=== PATIENT | male | born 1940 | race Caucasian/White ===

== ENCOUNTER 2018-03-14 06:57 | Inpatient (IN) | payer OTHER, MEDICARE ==
[~2018-03-14] VITALS: Ht 167.6 cm; Wt 82.4 kg
[2018-03-14] MEDS ORDERED: ACETAMINOPHEN 1000 MG/100 ML 100 ML IV ONE (07:15)
[2018-03-14] MEDS ORDERED: GENTAMICIN SULFATE 80 MG/2 ML VIAL ONE ×2 (07:34→13:46)
[2018-03-14] MEDS ORDERED: VANCOMYCIN 1 GM/200 ML INJ 200 ML IV ONE (07:57)
[2018-03-14] MEDS ORDERED: FERR325T18 PO (07:58)
[2018-03-14] MEDS ORDERED: TAMS0.4C4 PO (07:58)
[2018-03-14] MEDS ORDERED: APPL300T2 PO (07:58)
[2018-03-14] MEDS ORDERED: FINA5TAB2 PO (07:58)
[2018-03-14] MEDS ORDERED: LEVO75TA3 PO (07:58)
[2018-03-14] MEDS ORDERED: MULTTAB67 PO (07:58)
[2018-03-14] MEDS ORDERED: TRAM50TA PO (07:58)
[2018-03-14] MEDS ORDERED: ASPI81CH6 CHEW (07:58)
[2018-03-14] MEDS ORDERED: CALC1TAB12 PO (07:58)
[2018-03-14] MEDS ORDERED: CINN500C2 PO (07:58)
[2018-03-14] MEDS ORDERED: SIMV40TA PO (07:58)
[2018-03-14] MEDS ORDERED: BENA20TA PO (07:58)
[2018-03-14] MEDS ORDERED: INSULIN HUMAN REGULAR 1,000 UNITS/10 ML VIAL SQ PRN (08:15)
[2018-03-14] MEDS ORDERED: LACTATED RINGER'S 1000 ML IV PRN (08:15)
[2018-03-14] MEDS ORDERED: CHLORHEXIDINE GLUCONATE 2 % 1 PACK (2 CLOTHS) TOPICAL PRN (08:15)
[2018-03-14] MEDS ORDERED: CHLORHEXIDINE GLUCONATE 4% SOLN 120 ML BTL TOPICAL SCH (08:15)
[2018-03-14] MEDS ORDERED: POVIDONE IODINE 5% (ANTISEPSIS KIT) 4 APPLICATIONS EACH NARE PRN (08:15)
[2018-03-14] MEDS ORDERED: VANCOMYCIN 1 GM/200 ML PREMIX IV SCH (08:15)
[2018-03-14] MEDS ORDERED: SODIUM CHLORID 0.9% 500 ML IV PRN (08:15)
[2018-03-14] MEDS ORDERED: ceFAZolin 2 GM PREMIX 50 ML IV SCH (08:15)
[2018-03-14] MEDS ORDERED: METOPROLOL TARTRATE 25 MG TAB PO PRN (08:15)
[2018-03-14] MEDS ORDERED: HEPARIN SODIUM - SQ 10,000 UNITS/ML VIAL ONE (09:21)
[2018-03-14] MEDS ORDERED: BUPIVACAINE/EPINEPHRINE 0.5% PF 10 ML VIAL ONE (10:18)
[2018-03-14] MEDS ORDERED: EPINEPHRINE OTHER ONE (11:15)
[2018-03-14] MEDS ORDERED: SODIUM CHLORID 0.9% OTHER ONE (11:15)
[2018-03-14] MEDS ORDERED: SUGAMMADEX SODIUM 200 MG/2 ML VIAL IV PUSH ONE (11:21)
[2018-03-14] MEDS ORDERED: DEXAMETHASONE SOD PHOS 4 MG/ML VIAL IV ONE (12:00)
[2018-03-14] MEDS ORDERED: ONDANSETRON HCL 4 MG/2 ML VIAL IV PUSH ONE (12:00)
[2018-03-14] MEDS ORDERED: PHENYLEPHRINE HCL 10 MG/ML VIAL IV ONE (12:00)
[2018-03-14] MEDS ORDERED: SODIUM CHLOR 0.9% 250 ML INJ 250 ML IV ONE (12:00)
[2018-03-14] MEDS ORDERED: PHENYLEPH/NS 1000 MCG/10 ML SYR IV ONE (12:00)
[2018-03-14] MEDS ORDERED: PROPOFOL 200 MG/20 ML AMP IV ONE (12:00)
[2018-03-14] MEDS ORDERED: LIDOCAINE HCL 1% PF 5 ML SYRINGE OTHER ONE (12:00)
[2018-03-14] MEDS ORDERED: SODIUM CHLOR 0.9% 1000 ML INJ 1,000 ML IV ONE (12:00)
[2018-03-14] MEDS ORDERED: LACTATED RINGER'S 1000 ML INJ 2,000 ML IV ONE (12:00)
[2018-03-14] MEDS ORDERED: ROCURONIUM INJ 50 MG/5 ML SYRINGE IV PUSH ONE (12:00)
[2018-03-14] MEDS ORDERED: ePHEDrine/NS 25 MG/5 ML SYRINGE IV ONE (12:00)
[2018-03-14] MEDS ORDERED: ceFAZolin INJ 1,000 MG VIAL IV ONE ×2 (12:00→13:26)
[2018-03-14] MEDS ORDERED: HYDROmorphone HCL PF 2 MG/ML VIAL ONE ×2 (14:47→14:51)
[2018-03-14] MEDS ORDERED: VANCOMYCIN HCL 1000 MG VIAL ONE (16:00)
[2018-03-14] MEDS ORDERED: ONDANSETRON HCL 4 MG/2 ML VIAL ONE (16:18)
[2018-03-14] MEDS ORDERED: ALUMINUM/MAGNESIUM/SIMETH 30 ML CUP PO PRN (17:00)
[2018-03-14] MEDS ORDERED: NALOXONE HCL 0.4 MG/ML AMP IV PUSH PRN (17:00)
[2018-03-14] MEDS ORDERED: SOD PHOSPHATE/SOD BIPHOSPHATE (ADULT) ENEMA 133ML PR PRN (17:00)
[2018-03-14] MEDS ORDERED: BISACODYL 10 MG SUPP RECTAL PRN (17:00)
[2018-03-14] MEDS ORDERED: ONDANSETRON ODT 4 MG TAB PO PRN (17:00)
[2018-03-14] MEDS ORDERED: MORPHINE SULFATE 8 MG/ML INJ IV PUSH PRN (17:00)
[2018-03-14] MEDS ORDERED: Post-op Orders (for Pharmacy) XX ONE (17:00)
--- NOTE | 2018-03-14 17:05 | RADRPT ---
EXAM DATE: 03/14/2018 4:45 PM EDT AGE/SEX: 78 years / Male INDICATIONS: Lumbar spine fusion. CLINICAL DATA: This is the patient's initial encounter. Patient reports that signs and symptoms have been present for 1 day and indicates a pain score of Nonresponsive. MEDICAL/SURGICAL HISTORY: Non-responsive. Non-responsive. COMPARISON: No prior [facility] exams available for comparison. FINDINGS: 3 spot fluoroscopic images obtained in the operating room during a procedure document bilateral poste rior pedicular screws with vertical stabilization hardware extending from L3 through S1. Material has also been placed at the disc spaces at L4-L5 and L5-S1. There is decreased disc height at the L5-S1 level. CONCLUSION: Images document hardware posteriorly at L3-S1. Electronically signed by: Iam Sanchez MD 03/14/2018 5:04 PM EDT
--- NOTE | 2018-03-14 17:14 | PD.OP ---
cc: Jonah Yeboah MD Operative Report Date of Surgery: March 14, 2018 Preoperative Diagnosis: Lumbar spinal stenosis L2-3, L3-4, L4-5, L5-S1. Spondylolisthesis L5-S1, grade 3. Bilateral lumbosacral radiculopathy Postoperative Diagnosis: Same Procedure: Bilateral laminectomy L2-3, L3-4, L4-5, L5-S1. Reduction of spondylolisthesis, L5-S1. Posterior lateral interbody fusion L4-5 and L5-S1. Placement of interbody cage from the left L4-5 and L5-S1. Posterior spinal fusion, lateral transverse process technique L3-4, L4-5, L5-S1. Posterior spinal segmental instrumentation L3-S1. Major bone grafting of the lumbar spine Anesthesia: General Surgeon: Jonah Yeboah Emergency Management Consultant(s): COLTEN Geller Operation and Findings: EBL: 550 ml NOTE: Pura Oliver PA-C was present during the beginning of the procedure including the midline exposure, lateral recess exposure and a partial laminectomy including the bilateral laminectomy at L2-3. Sophia Geller PA-C was present during the rest of the surgical procedure. In my medical opinion her skill and care was necessary for proper management of this patient INDICATIONS: This patient is a 78-year-old male who is developing weakness into both of his legs. Investigative studies show a highly unstable grade 3 spondylolisthesis at L5-S1. The patient has a severe spinal stenosis at L3-4 L4 -5 and L5-S1. There is a moderate spinal stenosis at L2-3. Despite conservative care, the patient continued to be painful and symptomatic and now presents for surgical treatment. INSTRUMENTATION: Spine wave screws and interbody cages PROCEDURE: The patient brought to the operating room and anesthetized the supine position. The patient positioned prone on the Salvador frame on the Naman table. All pressure points are protected. The back was scrubbed with alcohol followed by Hibiclens followed by ChloraPrep and draped sterilely and antibiotics were given within a routine time window. A timeout was done. Lateral radiographic images used to identify the proper level for the procedure. Compared care for the preoperative studies. Skin markings were made anticipating surgical treatment. A midline exposure was accomplished. AP and lateral radiographic images were used to confirm proper level of dissection. Dissection continued out to the tips of the transverse processes from L3 to the sacrum. Deep retractors were positioned. A bilateral laminectomy was accomplished at L2 -3 L3-4 and L4-5. A Conrad procedure was performed at L5 with complete removal of the facet and the lamina. There was a very unstable pars fracture. Bilaterally we completely decompressed the L5 nerve root. A high-grade stenosis was found at all levels except for L2-3 which was a moderate to severe stenosis. The decompression was very satisfactory. We placed screws on the right side at L5 and S1 and use this to help with the reduction of the spondylolisthesis. At L4-5 a subtotal left-sided facet resection was accomplished allowing exposure of the disc space. An annulotomy was accomplished with resection of the entire disc. On the back table demineralized bone matrix, autologous bone graft and stem cells were mixed together to be used for bone grafting. After removal of the disc at L4-5, bone graft was impacted into the disc space followed by placement of a Staxx cage which was elevated. The attention was directed to the L5-S1. From the left side a subtotal facet resection allowed better visualization of the annulus. The spondylolisthesis had been partially reduced. A total discectomy was accomplished. Bone graft was placed into the disc space followed by placement of a Staxx cage which was elevated. Additional bone graft was placed behind the cage. Additional screws were placed to the left side L5 and S1 as well as bilateral screws at L3 and L4. These were checked under biplanar fluoroscopy and found to be in satisfactory alignment and position. Each screw was charged with electric current and there were no abnormal potentials registered in either lower extremity. We then did a further reduction of the spondylolisthesis and attaching this from L3-S1. Screws at S1 were 7.5 mm the other screws were 6.5 mm. The reduction was very satisfactory bringing this back to a minimal to grade 1 spondylolisthesis. Again we checked the L5 nerve root bilaterally there is no evidence of any nerve root compression in the foramen. Bone graft was placed into the lateral gutters from L3 to the sacrum. The wound had been irrigated multiple times. The deep fascia was approximated with interrupted #1 Vicryl suture subcutaneous tissue 2-0 Vicryl suture and skin with running intradermal 3-0 Vicryl followed by benzoin and Steri-Strips. A sterile dressing was plied. The patient was awakened and taken to the recovery room in satisfactory condition The wound was irrigated copiously. Bone grafting was placed along the lateral gutter in the region of the transverse process across this level. This was closed in layers with #1 Vicryl, 2-0 Vicryl and running intradermal 3-0 Vicryl followed by Steri-Strips and benzoin. On the contralateral side a separate exposure was made. The outer edge of the facet joints were identified. A bur was used to gain entrance into the pedicle followed by placement of a probe and proper length screws. Each screw was charged with electric current and no abnormal potentials registered in either lower extremity. The wound was irrigated copiously. Bone graft placed along the transverse process across this level. It was closed in layers using #1 Vicryl, 2-0 Vicryl and running intradermal 3-0 Vicryl followed by Steri-Strips and benzoin. Intraoperative radiographs were obtained. No complication was appreciated. The patient had a sterile dressing applied. The patient was awakened and taken to recovery room in satisfactory condition. FINDINGS: There was an unstable grade 3 spondylolisthesis at L5-S1. The final construct was very satisfactory. There was no complication that was appreciated. Jonah Yeboah MD March 14, 2018 17:14
[2018-03-14] MEDS ORDERED: HYDR-3580 PO (17:19)
--- NOTE | 2018-03-14 17:24 | HHI.FF ---
Face to Face Verification Diagnosis: (1) Spinal stenosis of lumbar region (2) Spondylolisthesis Physical Therapy Gait training, Safety evaluation S/P Spinal Fusion: Gait training with walker, Weight bearing as tolerated, No twisting of torso, No bending Additional Instructions 3 times per week for 2 weeks Nursing RN: 3 days/week x 2 weeks Nursing: Dressing changes Dressing Changes: Daily dressing change I have seen patient Iam Paige on 03/14/18. My clinical findings support the need for the requested home health care services because: Limited ability to care for self High risk of falls I certify that my clinical findings support that this patient is homebound because: Unsteady gait/balance Jonah Yeboah MD March 14, 2018 17:24
[2018-03-14] MEDS ORDERED: MIDAZOLAM HCL 2 MG/2 ML VIAL ONE (17:36)
[2018-03-14] MEDS ORDERED: MORPHINE SULFATE 4 MG/ML INJ ONE (17:37)
[2018-03-14 18:30] VITALS: BP 91/61; PULSE 112; RESP 12; O2SAT 98
[2018-03-14 20:00] VITALS: BP 99/65; PULSE 101; RESP 18; TEMP 98; O2SAT 98
[2018-03-14 21:00] VITALS: BP 143/75
[2018-03-14] MEDS ORDERED: NON-FORMULARY DRUG (Simvastatin 40 MG) PO SCH (21:00)
[2018-03-14] MEDS: PRAVASTATIN SOD 80 MG TAB PO SCH (21:00)
[2018-03-14] MEDS ORDERED: ZOLPIDEM TARTRATE 5 MG TAB PO PRN (21:00)
[2018-03-14] MEDS: TAMSULOSIN HCL 0.4 MG CAP PO SCH ×2 (21:00→22:04)
[2018-03-14] MEDS: PCA - TOTAL MG MORPHINE DELIVERED PER SHIFT SCH (22:00)
[2018-03-14] MEDS: LACTATED RINGER'S 1000 ML INJ 1,000 ML IV SCH (22:06)
[2018-03-15] VITALS (7 sets, daily range): BP systolic 92–123; BP diastolic 53–62; PULSE 82–97; RESP 16–18; TEMP 97.3–98.6; O2SAT 95–100
[2018-03-15] MEDS: ACETAMINOPHEN/HYDROcodone 325 MG/7.5 MG TAB PO PRN ×3 (03:40→15:23)
[2018-03-15] MEDS: MORPHINE SULFATE 30 MG/30 ML PCA IV SCH ×2 (03:59→20:52)
[2018-03-15] MEDS: LACTATED RINGER'S 1000 ML INJ 1,000 ML IV SCH ×2 (05:28→17:58)
[2018-03-15] MEDS: PCA - TOTAL MG MORPHINE DELIVERED PER SHIFT SCH ×3 (06:00→23:54)
[2018-03-15] MEDS: LEVOTHYROXINE SODIUM 75 MCG TAB PO SCH (06:05)
[2018-03-15 08:13] LABS: HEMATOCRIT 24.6 % (39.0-51.0); HEMOGLOBIN 8.2 GM/DL (13.0-17.0)
[2018-03-15] MEDS: LISINOPRIL 20 MG TAB PO SCH (08:32)
[2018-03-15] MEDS: FINASTERIDE 5 MG TAB PO SCH (08:32)
--- NOTE | 2018-03-15 11:56 | PD.CONS ---
HPI Service [facility] Consult Requested By Dr. Jonah Yeboah Reason for Consult Opinion and recommendations on treatment of patient's hypertension and hyperlipidemia Primary Care Physician Arnel Jansen M.D. Diagnoses: History of Present Illness 78-year-old white male with a history of lumbar stenosis who has had chronic back pain problems and failed conservative treatment electively underwent laminectomy with Dr. Yeboah yesterday. Currently she is he is doing well postoperatively with no complaints. His pain is controlled well. When he is well he occasionally does struggle with constipation. He states that his blood pressures adequately controlled well at home on his antihypertensives. Review of Systems Constitutional: DENIES: Fatigue, Fever, Chills, Change in appetite Endocrine: DENIES: Heat/cold intolerance Eyes: DENIES: Blurred vision, Eye pain, Vision loss Ears, nose, mouth, throat: DENIES: Hearing loss, Nasal discharge, Throat pain, Ear Pain, Sinus Pain Respiratory: DENIES: Cough, Shortness of breath Cardiovascular: DENIES: Chest pain, Palpitations, Dyspnea on Exertion, Lower Extremity Edema Gastrointestinal: DENIES: Abdominal pain, Black stools, Bloody stools, Constipation, Diarrhea, Nausea, Vomiting Musculoskeletal: COMPLAINS OF: Joint pain, Back pain (Chronic back pain), DENIES: Muscle aches, Stiffness Integumentary: DENIES: Rash Hematologic/lymphatic: DENIES: Bruising, Lymphadenopathy Immunologic/allergic: DENIES: Eczema Neurologic: DENIES: Headache, Localized weakness, Paresthesias Psychiatric: DENIES: Anxiety, Depression, Suicidal Ideation Past Family Social History Allergies: Coded Allergies: No Known Allergies (Unverified , 03/14/18) Past Medical History Hypothyroidism Hyperlipidemia Hypertension BPH Chronic back pain Osteoarthritis Lumbar stenosis Previous trauma and liver laceration and rupture Past Surgical History Liver laceration repair Bilateral carotid endarterectomy Left femur fracture repair Left foot surgery Right knee repair Reported Medications Aspirin 81 mg p.o. daily Benazepril 20 mg p.o. daily Calcium carbonate 1 p.o. daily Ferrous sulfate 325 mg p.o. daily Finasteride 5 mg p.o. daily Sarver 5 1 p.o. every 4 as needed for pain Levothyroxine 75 MCG p.o. daily Multivitamins 1 p.o. daily Simvastatin 40 mg p.o. nightly Flomax 0. 8 mg p.o. nightly Tramadol 50 mg p.o. twice daily as needed for pain Family History Noncontributory Social History Does not smoke cigarettes or drink alcohol Physical Exam Vital Signs Vital Signs Date Time Temp Pulse Resp B/P (MAP) Pulse Ox O2 Delivery O2 Flow Rate FiO2 03/15/18 08:00 97.7 88 16 123/60 (81) 95 03/15/18 04:00 98.1 93 18 106/53 (70) 97 03/15/18 00:00 97.8 97 18 114/62 (79) 98 03/14/18 21:00 143/75 (97) 03/14/18 20:00 98.0 101 18 99/65 (76) 98 03/14/18 19:01 Nasal Cannula 2.00 03/14/18 18:30 112 12 91/61 (71) 98 03/14/18 18:15 111 18 96/53 (67) 99 Nasal Cannula 3 03/14/18 18:00 110 18 125/62 (83) 99 Nasal Cannula 3 03/14/18 17:45 119 18 113/67 (82) 99 Nasal Cannula 3 03/14/18 17:30 118 18 109/72 (84) 99 Nasal Cannula 3 03/14/18 17:20 97.4 116 18 106/74 (85) 100 Nasal Cannula 3 Physical Exam GENERAL: This is a well-nourished, well-developed patient, in no apparent distress. SKIN: No rashes, ecchymoses or lesions. Cool and dry. HEAD: Atraumatic. Normocephalic. No temporal or scalp tenderness. EYES: Pupils equal round and reactive. Extraocular motions intact. No scleral icterus. No injection or drainage. ENT: Nose without bleeding, purulent drainage or septal hematoma. NECK: Trachea midline. Supple, nontender, CARDIOVASCULAR: Regular rate and rhythm with 2 out of 6 systolic ejection murmur RESPIRATORY: Relatively clear to auscultation. Breath sounds equal bilaterally. No wheezes, rales, or rhonchi. GASTROINTESTINAL: Abdomen soft, non-tender, nondistended. Small reducible ventral hernia normoactive bowel sounds MUSCULOSKELETAL: Extremities without clubbing, cyanosis, or edema. NEUROLOGICAL: Awake and alert to person place time. Cranial nerves II through XII intact. Motor and sensory grossly within normal limits. Normal speech. Laboratory Laboratory Tests Test 03/14/18 15:20 03/15/18 06:45 Blood Gas Puncture Site DRAWN IN OR Blood Gas Patient Temperature 98.6 Blood Gas HCO3 21 Blood Gas Base Excess -3.0 Blood Gas Oxygen Saturation 96 Arterial Blood pH 7.40 Arterial Blood Partial Pressure CO2 35 Arterial Blood Partial Pressure O2 254 Arterial Blood Oxygen Content 14.7 Arterial Blood Carboxyhemoglobin 0.0 Arterial Blood Methemoglobin 1.1 Blood Gas Hemoglobin 10.4 Oxygen Delivery Device VENTILATOR Blood Gas Ventilator Setting OR SETTINGS Blood Gas Inspired Oxygen 50 Hemoglobin 8.2 Hematocrit 24.6 Result Diagram: 03/15/18 0645 Imaging Last Impressions Lumbar Spine X-Ray 03/14/18 0000 Signed Impressions: CONCLUSION: Images document hardware posteriorly at L3-S1. Assessment and Plan Assessment and Plan 1. Lumbar stenosis status post operative day #1 Bilateral laminectomy L2-3, L3-4, L4-5, L5-S1. Reduction of spondylolisthesis, L5-S1. Posterior lateral interbody fusion L4-5 and L5-S1. Placement of interbody cage from the left L4-5 and L5-S1. Posterior spinal fusion, lateral transverse process technique L3-4, L4-5, L5- S1. Posterior spinal segmental instrumentation L3-S1 with Major bone grafting of the lumbar spine Continue postoperative care, pain control, physical therapy per orthopedic surgery. 2. Hypothyroidism - continue with levothyroxine 3. Hypertension, chronic essential Continue home GREER inhibitor, IV Vasotec as needed for uncontrolled blood pressure. Further recommendations based on blood pressure trends 4. BPH -continue with Flomax and finasteride 5. DVT prophylaxis - bilateral SCDs Thank you for this consultation. Jaz Briones MD March 15, 2018 11:55
[2018-03-15] MEDS ORDERED: ENALAPRILAT 1.25 MG/ML VIAL IV PUSH PRN (12:00)
--- NOTE | 2018-03-15 13:09 | HHI.DCPOC ---
Discharge Care Plan Diagnosis: (1) Spinal stenosis of lumbar region (2) Spondylolisthesis Your Health Problems Are: Difficulty with ADL Incision/Drains Swelling Goals to Promote Your Health * To prevent worsening of your condition and complications * To maintain your health at the optimal level Directions to Meet Your Goals Take your medications as prescribed Follow your dietary instruction Follow activity as directed Keep your appointments as scheduled Take your immunizations and boosters as scheduled If your symptoms worsen call your PCP, if no PCP go to Urgent Care Center or Emergency Room Smoking is Dangerous to Your Health. Avoid second hand smoke Call the 24-hour hour crisis hotline for domestic abuse at Pura Oliver March 15, 2018 13:09
--- NOTE | 2018-03-15 13:10 | HHI.DS ---
Discharge Summary Admission Date March 14, 2018 at 06:57 Discharge Date: March 16, 2018 Admitting Diagnosis see below Diagnosis: (1) Spinal stenosis of lumbar region Diagnosis: Principal ICD Codes: M48.061 - Spinal stenosis, lumbar region without neurogenic claudication (2) Spondylolisthesis Diagnosis: Principal ICD Codes: M43.10 - Spondylolisthesis, site unspecified Procedures Laminectomy L23, L34, L45, L5S1, Posterior lumbar fusion L2-S1. Brief History This is a 78 year old male patient CBC/BMP: 03/15/18 0645 Significant Findings Laboratory Tests Test 03/14/18 15:20 03/15/18 06:45 Blood Gas HCO3 21 mmol/L (22-26) Blood Gas Base Excess -3.0 mmol/L (-2-2) Arterial Blood Partial Pressure CO2 35 mmHg (38-42) Arterial Blood Partial Pressure O2 254 mmHg (61-120) Blood Gas Hemoglobin 10.4 G/DL (12.0-16.0) Hemoglobin 8.2 GM/DL (13.0-17.0) Hematocrit 24.6 % (39.0-51.0) Pt Condition on Discharge: Stable Discharge Disposition: Disch w/ Home Health Serv Discharge Instructions Diet Instructions: As Tolerated, No Restrictions, Soft Diet Additional Diet Instructions: Soft diet for 48 hours Activities You Can Perform: Weight Bearing as Sumit, See Additionl Instruction Activities to Avoid: Strenuous Activity Additional Activity Instruc.: Brace when out of bed for 3 months New Medications: Hydrocodone/Acetaminophen (Hydrocodone-Acetamin 7.5-325) 7.5 Mg-325 Mg Tablet 1 TAB PO Q4H PRN for Pain, #42 TAB Continued Medications: Aspirin (Aspirin Low Dose) 81 Mg Chew 81 MG CHEW DAILY, TAB 0 Refills Benazepril (Benazepril) 20 Mg Tab 20 MG PO DAILY for Blood Pressure Management, #30 TAB 0 Refills Calcium Carbonate-Cholecalciferol (Calcium 500 +D) 500-400 Mg-Unit Tab 1 TAB PO DAILY for Calcium Supplement, TAB 0 Refills Cider Vinegar (Apple Cider Vinegar) 300 Mg Tablet 450 MG PO BID Cinnamon (Eql Cinnamon) 500 Mg Cap 2000 MG PO DAILY, #1 BOTTLE Ferrous Sulfate (Ferrous Sulfate) 325 Mg (65 Mg Iron) Tablet 325 MG PO DAILY for Nutritional Supplement, #30 TAB 0 Refills Finasteride (Finasteride) 5 Mg Tab 5 MG PO DAILY for Manage Prostate Problems, #30 TAB 0 Refills Do not crush. Levothyroxine (Levothyroxine) 75 Mcg Tab 75 MCG PO DAILY for Thyroid, #30 TAB 0 Refills Multiple Vitamin (Multiple Vitamin) 1 Tab 1 TAB PO DAILY for Nutritional Supplement, TAB 0 Refills Simvastatin (Simvastatin) 40 Mg Tab 40 MG PO HS for Cholesterol Management, #30 TAB 0 Refills Tamsulosin (Tamsulosin) 0.4 Mg Cap 0.8 MG PO HS for Manage Prostate Problems, #60 CAP 0 Refills Tramadol (Tramadol) 50 Mg Tab 50 MG PO BID PRN for PAIN, TAB 0 Refills Pura Oliver March 15, 2018 13:10
[2018-03-15] MEDS ORDERED: WALKER WHEELS/F1 MIS (13:11)
[2018-03-15] MEDS ORDERED: COMMODE 3-IN-11 MIS (13:11)
[2018-03-15] MEDS: DOCUSATE SODIUM 100 MG CAP PO SCH (20:50)
[2018-03-15] MEDS: PRAVASTATIN SOD 80 MG TAB PO SCH (20:50)
[2018-03-15] MEDS: TAMSULOSIN HCL 0.4 MG CAP PO SCH (20:50)
[2018-03-15] MEDS ORDERED: SODIUM CHLOR 0.9% 1000 ML INJ 1,000 ML IV SCH (21:30)
--- NOTE | 2018-03-15 21:43 | RADRPT ---
EXAM DATE: 03/15/2018 9:38 PM EDT AGE/SEX: 78 years / Male INDICATIONS: Stroke alert, slurred speech, left sided paralysis CLINICAL DATA: This is the patient's initial encounter. Patient reports that signs and symptoms have been present for 1 day and indicates a pain score of Nonresponsive. MEDICAL/SURGICAL HISTORY: Non-responsive. Non-responsive. RADIATION DOSE: 56.35 CTDI (mGy) COMPARISON: No prior [facility] exams available for comparison. Report was called by [ Dr. Noble to 's [place] at 9:40 PM] TECHNIQUE: CT of the head without contrast. Using automated exposure control and adjustment of the mA and/or kV according to patient size, radiation dose was kept as low as reasonably achievable to ob tain optimal diagnostic quality images. FINDINGS: Cerebrum: The ventricles are normal for age. There is bilateral cortical atrophy. There is a Tiny ol d lacunar infarct in the right basal ganglia. No evidence of midline shift, mass lesion, hemorrhage or acute infarction. No extraaxial fluid collections are seen. Posterior Fossa: The cerebellum and brainstem are intact. The 4th ventricle is midline. The cerebe llopontine angle is unremarkable. Extracranial: The visualized portion of the orbits is intact. Skull: The calvaria is intact. No evidence of skull fracture. CONCLUSION: 1. No acute intracranial hemorrhage. 2. 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 3. Bilateral cortical atrophy. Electronically signed by: Urbano Noble MD 03/15/2018 9:41 PM EDT
[2018-03-15 21:54] LABS: AUTOMATED NEUTROPHIL # 12.8 TH/MM3 (1.8-7.7); BASOPHIL % 0.2 % (0.0-2.0); EOSINOPHIL % 0.1 % (0.0-4.0); HEMATOCRIT 22.2 % (39.0-51.0); HEMOGLOBIN 7.3 GM/DL (13.0-17.0); LYMPH % 5.9 % (9.0-44.0); LYMPHOCYTE # 0.9 TH/MM3 (1.0-4.8); MEAN CELL VOLUME 96.1 FL (80.0-100.0); MEAN CORPUSCULAR HEMOGLOBIN 31.7 PG (27.0-34.0); MONO % 6.6 % (0.0-8.0); NEUT % 87.2 % (16.0-70.0); PLATELET COUNT 183 TH/MM3 (150-450); RED BLOOD COUNT 2.31 MIL/MM3 (4.50-5.90); RED CELL DISTRIBUTION WIDTH 13.6 % (11.6-17.2); WHITE BLOOD COUNT 14.7 TH/MM3 (4.0-11.0)
--- NOTE | 2018-03-15 22:12 | PD.ORT.PN ---
Subjective Subjective Remarks Seen at 12:30pm today. Pain in legs much improved. He can 'already tell a difference'. No new leg pain. Back is very sore with moderate pain. Appetite is good. No new CP or SOB. Objective Vitals Vital Signs Date Time Temp Pulse Resp B/P (MAP) Pulse Ox O2 Delivery O2 Flow Rate FiO2 03/15/18 21:17 100 1.50 03/15/18 20:52 18 03/15/18 20:00 98.6 85 17 100/56 (71) 99 03/15/18 16:00 98.1 88 16 92/54 (67) 97 03/15/18 14:00 20 03/15/18 12:00 97.3 82 16 104/53 (70) 95 03/15/18 08:00 97.7 88 16 123/60 (81) 95 03/15/18 04:00 98.1 93 18 106/53 (70) 97 03/15/18 00:00 97.8 97 18 114/62 (79) 98 I/O 03/14/18 03/14/18 03/14/18 03/15/18 03/15/18 03/15/18 07:00 15:00 23:00 07:00 15:00 23:00 Intake Total 2800 ml 1241 ml 1100 ml Output Total 1265 ml 200 ml 150 ml Balance 1535 ml 1041 ml 950 ml Intake Oral 1100 ml IV Total 1241 ml Other 2800 ml Output Urine Total 530 ml 0 ml Drainage Total 185 ml 200 ml 150 ml Estimated Blood Loss 550 ml # Bowel Movements 0 Result Diagram: 03/15/180 Other Results Laboratory Tests Test 03/15/18 21:20 Imaging Last [address] 03/15/18 0000 Signed Impressions: CONCLUSION: 1. No acute intracranial hemorrhage. 2. 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 3. Bilateral cortical atrophy. Procedures Laminectomy L23, L34, L45, L5S1, Posterior lumbar fusion L2-S1. Objective Remarks Sitting up in bed at bedside NAD Eating lunch L/S Dressings intact, drain in place, no erythema, mild spasm +motor at/ehl/GS bilaterally, +sens, +nvi Neg homans bilaterally Assessment & Plan Ortho Post Op Day #: 1 Problem List: (1) Spinal stenosis of lumbar region ICD Codes: M48.061 - Spinal stenosis, lumbar region without neurogenic claudication Qualifiers: Qualified Codes: M48.062 - Spinal stenosis, lumbar region with neurogenic claudication (2) Spondylolisthesis ICD Codes: M43.10 - Spondylolisthesis, site unspecified Qualifiers: Qualified Codes: M43.16 - Spondylolisthesis, lumbar region Assessment and Plan pod#1 s/p Lami/Fusion L2-S1 Pain moderately controlled. Legs improved. PO pain meds as needed. D/C lumbar drain today. Ok to redress drain site. Dressing changes only if saturated. PT - Out of bed with brace for 10-12 weeks. WBAT. Walker as needed. Mild postop anemia. R/C Hg/Hct tomorrow am. If drops below 7.5 consider transfusion. D/C planning, C tomorrow or tuesday. DME written. Pura Oliver March 15, 2018 22:11
[2018-03-15 22:25] LABS: TROPONIN I LESS THAN 0.02 NG/ML (0.02-0.05)
[2018-03-15 22:30] LABS: PROTHROMBIN TIME - PATIENT 9.8 SEC (9.8-11.6)
[2018-03-16] VITALS (13 sets, daily range): BP systolic 92–123; BP diastolic 44–60; PULSE 83–112; RESP 16–18; TEMP 98.3–99.9; O2SAT 94–98
[2018-03-16] MEDS ORDERED: SODIUM CHLOR 0.9% 250 ML INJ 250 ML IV ONE
[2018-03-16] MEDS ORDERED: FUROSEMIDE 20 MG/2 ML VIAL IV PUSH ONE
[2018-03-16] MEDS ORDERED: ACETAMINOPHEN 325 MG TAB PO ONE (04:15)
[2018-03-16] MEDS: LEVOTHYROXINE SODIUM 75 MCG TAB PO SCH (04:59)
[2018-03-16] MEDS: PCA - TOTAL MG MORPHINE DELIVERED PER SHIFT SCH ×3 (05:00→22:00)
[2018-03-16] MEDS: ACETAMINOPHEN/HYDROcodone 325 MG/7.5 MG TAB PO PRN ×4 (06:47→23:30)
[2018-03-16] MEDS: FINASTERIDE 5 MG TAB PO SCH (08:53)
[2018-03-16] MEDS: LISINOPRIL 20 MG TAB PO SCH (08:53)
[2018-03-16] MEDS: DOCUSATE SODIUM 100 MG CAP PO SCH ×2 (08:54→19:42)
[2018-03-16 09:31] LABS: AUTOMATED NEUTROPHIL # 11.3 TH/MM3 (1.8-7.7); BASOPHIL % 0.2 % (0.0-2.0); EOSINOPHIL % 0.1 % (0.0-4.0); HEMATOCRIT 24.5 % (39.0-51.0); HEMOGLOBIN 8.3 GM/DL (13.0-17.0); LYMPH % 5.4 % (9.0-44.0); LYMPHOCYTE # 0.7 TH/MM3 (1.0-4.8); MEAN CELL VOLUME 93.3 FL (80.0-100.0); MEAN CORPUSCULAR HEMOGLOBIN 31.8 PG (27.0-34.0); MEAN CORPUSCULAR HGB CONC 34.1 % (32.0-36.0); MONO % 7.7 % (0.0-8.0); NEUT % 86.6 % (16.0-70.0); PLATELET COUNT 165 TH/MM3 (150-450); RED BLOOD COUNT 2.62 MIL/MM3 (4.50-5.90); RED CELL DISTRIBUTION WIDTH 15.2 % (11.6-17.2); WHITE BLOOD COUNT 13.1 TH/MM3 (4.0-11.0)
[2018-03-16 09:35] LABS: ALBUMIN 2.6 GM/DL (3.4-5.0); AST (GOT) 28 U/L (15-37); BICARBONATE 20.1 MEQ/L (21.0-32.0); BLOOD UREA NITROGEN 26 MG/DL (7-18); CALCIUM 7.5 MG/DL (8.5-10.1); CHLORIDE 103 MEQ/L (98-107); CREATININE 1.48 MG/DL (0.60-1.30); GLOMERULAR FILTRATION RATE 46 ML/MIN (>89); GLUCOSE,RANDOM 185 MG/DL (74-106); SODIUM (NA) 134 MEQ/L (136-145)
[2018-03-16 09:36] LABS: ALT (GPT) 19 U/L (12-78)
[2018-03-16 09:38] LABS: ALKALINE PHOSPHATASE 89 U/L (45-117); TOTAL BILIRUBIN ADULT 0.5 MG/DL (0.2-1.0); TOTAL PROTEIN 5.3 GM/DL (6.4-8.2)
--- NOTE | 2018-03-16 11:14 | HHI.PR ---
Subjective Remarks Follow-up visit history of lumbar stenosis and chronic back pain with failed conservative treatment, status post laminectomy with Dr. Meza. Patient seen and examined today sitting in a chair with brace on. at the bedside. Reports he is doing well. 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 He has not been eating well. Patient reports constipation. Otherwise, denies SOB / dyspnea. Denies chest pain, palpitations, headaches, dizziness. Denies fevers , chills, n/v/d. Denies hematuria, dysuria. Objective Vitals Vital Signs Date Time Temp Pulse Resp B/P (MAP) Pulse Ox O2 Delivery O2 Flow Rate FiO2 03/16/18 08:00 98.6 91 18 101/53 (69) 97 03/16/18 06:42 98.9 101 16 104/59 (74) 96 03/16/18 05:39 99.9 110 16 94/52 96 03/16/18 05:00 16 03/16/18 04:00 99.0 105 16 111/53 (72) 97 03/16/18 04:00 99.7 112 18 109/59 (76) 98 03/16/18 03:38 99.0 105 16 111/53 97 03/16/18 03:09 99.3 106 16 92/44 97 03/16/18 02:51 99.3 103 16 92/44 (60) 94 03/16/18 00:01 98.9 107 18 100/55 (70) 96 03/15/18 23:54 16 03/15/18 21:45 Room Air 03/15/18 21:17 100 1.50 03/15/18 20:52 18 03/15/18 20:00 98.6 85 17 100/56 (71) 99 03/15/18 16:00 98.1 88 16 92/54 (67) 97 03/15/18 14:00 20 03/15/18 12:00 97.3 82 16 104/53 (70) 95 I/O 03/15/18 03/15/18 03/15/18 03/16/18 03/16/18 03/16/18 07:00 15:00 23:00 07:00 15:00 23:00 Intake Total 1241 ml 1100 ml 1080 ml Output Total 200 ml 150 ml 450 ml Balance 1041 ml 950 ml 630 ml Intake Oral 1100 ml 420 ml IV Total 1241 ml Packed Cells 400 ml Blood Product IV Normal Saline Flush 260 ml Output Urine Total 0 ml 450 ml Drainage Total 200 ml 150 ml # Bowel Movements 0 Result Diagram: 03/16/18 0910 03/16/18 0910 Imaging Last Impressions Head CT 03/15/18 0000 Signed Impressions: CONCLUSION: 1. No acute intracranial hemorrhage. 2. 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 3. Bilateral cortical atrophy. Lumbar Spine X-Ray 03/14/18 0000 Signed Impressions: CONCLUSION: Images document hardware posteriorly at L3-S1. Objective Remarks GENERAL: This is a well-nourished, well-developed patient, in no apparent distress. SKIN: Warm and dry. HEENT: Normocephalic. Pupils equal round and reactive. Nose without bleeding. Airway patent. NECK: Trachea midline. CARDIOVASCULAR: Regular rate and rhythm without murmurs, gallops, or rubs. RESPIRATORY: Clear to auscultation. Breath sounds equal bilaterally. No wheezes , rales, or rhonchi. GASTROINTESTINAL: Abdomen soft, non-tender, nondistended. Bowel Sounds normoactive x4. MUSCULOSKELETAL: Extremities without clubbing, cyanosis. Left lower extremity + 1 edema, right lower extremity trace edema. Brace in place NEUROLOGICAL: Awake and alert. Oriented to time, place, person. No focal neuro deficit. Moves all extremities. Normal speech. A/P Assessment and Plan 78-year-old white male with a history of lumbar stenosis who has had chronic back pain problems and failed conservative treatment electively underwent laminectomy with Dr. Meza Lumbar stenosis status post operative day #1 Bilateral laminectomy L2-3, L3-4, L4-5, L5-S1. Reduction of spondylolisthesis, L5-S1. Posterior lateral interbody fusion L4-5 and L5-S1. Placement of interbody cage from the left L4-5 and L5-S1. Posterior spinal fusion, lateral transverse process technique L3-4, L4-5, L5- S1. Posterior spinal segmental instrumentation L3-S1 with Major bone grafting of the lumbar spine -Continue postoperative care, pain control, physical therapy per orthopedic surgery. -Pain management add stool softener, bowel regimen Hypothyroidism - continue with levothyroxine Hypertension, chronic essential -Continue home GREER inhibitor, IV Vasotec as needed for uncontrolled blood pressure. -Monitor BP trend BPH - continue with Flomax and finasteride DVT prophylaxis - bilateral SCDs Discharge Planning Plan to DC home with home health care per Liz Lawrence March 16, 2018 11:14
[2018-03-16] MEDS ORDERED: SENNOSIDES 8.6 MG TAB PO ONE (11:30)
[2018-03-16] MEDS ORDERED: LACTULOSE SYRUP 20 GM/30 ML CUP PO PRN (11:30)
[2018-03-16] MEDS ORDERED: SENNOSIDES 8.6 MG TAB PO PRN (11:30)
--- NOTE | 2018-03-16 13:02 | PD.ORT.PN ---
Subjective Subjective Remarks Doing better today. Concerning symptoms of slurring and eye drooping resolved. His legs continues to do well. States he 'feels fine' except for a very mild abrasion on the forehead from the intraoperative cushion. Appetite is good. No new CP or SOB. No fever or abd pain. Objective Vitals Vital Signs Date Time Temp Pulse Resp B/P (MAP) Pulse Ox O2 Delivery O2 Flow Rate FiO2 03/16/18 08:00 98.6 91 18 101/53 (69) 97 03/16/18 06:42 98.9 101 16 104/59 (74) 96 03/16/18 05:39 99.9 110 16 94/52 96 03/16/18 05:00 16 03/16/18 04:00 99.0 105 16 111/53 (72) 97 03/16/18 04:00 99.7 112 18 109/59 (76) 98 03/16/18 03:38 99.0 105 16 111/53 97 03/16/18 03:09 99.3 106 16 92/44 97 03/16/18 02:51 99.3 103 16 92/44 (60) 94 03/16/18 00:01 98.9 107 18 100/55 (70) 96 03/15/18 23:54 16 03/15/18 21:45 Room Air 03/15/18 21:17 100 1.50 03/15/18 20:52 18 03/15/18 20:00 98.6 85 17 100/56 (71) 99 03/15/18 16:00 98.1 88 16 92/54 (67) 97 03/15/18 14:00 20 I/O 03/15/18 03/15/18 03/15/18 03/16/18 03/16/18 03/16/18 07:00 15:00 23:00 07:00 15:00 23:00 Intake Total 1241 ml 1100 ml 1080 ml Output Total 200 ml 150 ml 450 ml Balance 1041 ml 950 ml 630 ml Intake Oral 1100 ml 420 ml IV Total 1241 ml Packed Cells 400 ml Blood Product IV Normal Saline Flush 260 ml Output Urine Total 0 ml 450 ml Drainage Total 200 ml 150 ml # Bowel Movements 0 Result Diagram: 03/16/18 0910 03/16/18 0910 Other Results Laboratory Tests Test 03/15/18 21:20 Prothromb Time International Ratio 1.0 RATIO Prothrombin Time 9.8 SEC (9.8-11.6) Imaging Last [address] 03/15/18 0000 Signed Impressions: CONCLUSION: 1. No acute intracranial hemorrhage. 2. 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 3. Bilateral cortical atrophy. Procedures Laminectomy L23, L34, L45, L5S1, Posterior lumbar fusion L2-S1. Objective Remarks Sitting up in bed, eating lunch NAD Eating lunch L/S Dressings intact, drain in place, no erythema, mild spasm +motor at/ehl/GS bilaterally, +sens, +nvi Neg homans bilaterally When speaking to the patient, no eye drooping observed. Annunciates well without slurring. Assessment & Plan Ortho Post Op Day #: 2 Problem List: (1) Spinal stenosis of lumbar region ICD Codes: M48.061 - Spinal stenosis, lumbar region without neurogenic claudication Qualifiers: Qualified Codes: M48.062 - Spinal stenosis, lumbar region with neurogenic claudication (2) Spondylolisthesis ICD Codes: M43.10 - Spondylolisthesis, site unspecified Qualifiers: Qualified Codes: M43.16 - Spondylolisthesis, lumbar region Assessment and Plan pod#2 s/p Lami/Fusion L2-S1 He had an episode of slurring and facial drooping last night. Resolved today. Neuro consult placed. He has yet to be seen today. Pain moderately controlled. Legs improved. PO pain meds as needed. Lumbar drain removed. Dressing changes only if saturated. PT - Out of bed with brace for 10-12 weeks. WBAT. Walker as needed. Transfused last night as Hg was 6.8. Improved today to 8.2. D/C planning, [facility] tuesday. Rehab if medical concerns. DME written. Pura Oliver March 16, 2018 13:02
--- NOTE | 2018-03-16 14:44 | EKG ---
Date Performed: 03/15/2018 Time Performed: 21:21:17 PTAGE: 78 years EKG: Sinus rhythm NORMAL ECG NO PREVIOUS TRACING DOCTOR: Reginald Cheatham Interpretating Date/Time 03/16/2018 14:43:19
[2018-03-16] MEDS: LACTATED RINGER'S 1000 ML INJ 1,000 ML IV SCH (18:58)
[2018-03-16] MEDS: PRAVASTATIN SOD 80 MG TAB PO SCH (19:42)
[2018-03-16] MEDS: TAMSULOSIN HCL 0.4 MG CAP PO SCH (19:42)
--- NOTE | 2018-03-16 20:52 | MB ---
cc: Matt Harrell MD, PhD Matt Harrell MD PhD DATE: 03/16/2018 REASON FOR CONSULTATION: "Brain attack." HISTORY OF PRESENT ILLNESS: Mr. Paige is a very pleasant 78-year-old man who has a history of spondylolisthesis L5-S1 treated with surgery on 03/14. The patient was stable. Yesterday evening he had an episode where he suddenly developed droopy eyelids and dysarthria, which lasted about 30-40 minutes then resolved. The case was discussed with my colleague, Dr. Ramos, yesterday evening and a Stat brain CT scan was ordered, which was with no acute change. There is a tiny old lacunar stroke, left basal ganglia, but no acute change present. The patient has remained neurologically stable throughout the day. CURRENT MEDICATIONS: 1. Senokot. 2. Lactulose. 3. Colace. 4. Vasotec. 5. Prinivil. 6. Proscar. 7. Synthroid. 8. Flomax, 9. Pravachol. 10. Ambien, 11. [place] for pain. 11. Dulcolax. 12. Morphine p.r.n. pain. NEUROLOGIC EXAM: VITAL SIGNS: Blood pressure 123/60, pulse 83, respirations 18, temperature 98.3 degrees Fahrenheit. Higher cortical function: He is alert and oriented. Speech is normal at this time with no sign of dysarthria. Cranial nerves are intact. There is no ptosis. The extraocular movements are full. Motor exam: He has normal strength in all groups. Reflexes are symmetric. IMAGING STUDIES: CT of the brain: No acute change. As noted above, there is a very small old lacunar stroke right basal ganglia. LABORATORY DATA: White count 13,000, hemoglobin 8.3, hematocrit 24.5%, platelet count 165,000. His PT is 9.8, INR 1, APTT 23.5. Sodium is 134, potassium 4.8, chloride 103, CO2 of 20, BUN is 27, creatinine 1.48. IMPRESSION: Probable transient ischemic attack which is completely resolved at the present time. RECOMMENDATION: We will get a carotid ultrasound as well as an echocardiogram to rule out embolic source. We will check a lipid panel as well. Once okay from the postoperative standpoint, would recommend starting low-dose aspirin 81 mg daily. Matt Harrell MD, PhD HALEY/ , 08:31 PM , 08:51 PM
[2018-03-16 21:16] LABS: CHOLESTEROL/ HDL RATIO 2.3 RATIO; HDL CHOLESTEROL 45.1 MG/DL (40.0-60.0)
[2018-03-17 00:55] VITALS: BP 127/58; PULSE 95; RESP 17; TEMP 98.7; O2SAT 97
[2018-03-17 04:50] VITALS: BP 150/66; PULSE 77; RESP 17; TEMP 98.3; O2SAT 99
[2018-03-17] MEDS: PCA - TOTAL MG MORPHINE DELIVERED PER SHIFT SCH ×2 (06:00→14:00)
[2018-03-17] MEDS: LEVOTHYROXINE SODIUM 75 MCG TAB PO SCH (06:41)
[2018-03-17] MEDS: LACTATED RINGER'S 1000 ML INJ 1,000 ML IV SCH (07:28)
--- NOTE | 2018-03-17 07:57 | PD.ORT.PN ---
Subjective Subjective Remarks Patient states he continues to do well. He saw neurology last night. They are ordering a carotid US and echo. Denies any new symptoms of slurring and eye drooping resolved. His legs continues to do well. States he 'feels fine' except for a very mild abrasion on the forehead from the intraoperative cushion. Appetite is good. No new CP or SOB. No fever or abd pain. Objective Vitals Vital Signs Date Time Temp Pulse Resp B/P (MAP) Pulse Ox O2 Delivery O2 Flow Rate FiO2 03/17/18 06:00 19 03/17/18 04:50 98.3 77 17 150/66 (94) 99 03/17/18 00:55 98.7 95 17 127/58 (81) 97 03/16/18 22:00 18 03/16/18 21:17 98 21 03/16/18 20:55 99.4 93 16 109/56 (73) 96 03/16/18 20:00 96 Room Air 03/16/18 16:00 98.3 83 18 123/60 (81) 98 03/16/18 15:36 Room Air 03/16/18 14:36 97 21 03/16/18 14:00 12 03/16/18 12:00 98.5 84 18 110/53 (72) 98 03/16/18 08:00 98.6 91 18 101/53 (69) 97 I/O 03/16/18 03/16/18 03/16/18 03/17/18 03/17/18 03/17/18 07:00 15:00 23:00 07:00 15:00 23:00 Intake Total 1080 ml 720 ml 480 ml Output Total 450 ml 1080 ml 600 ml Balance 630 ml -360 ml -120 ml Intake Oral 420 ml 720 ml 480 ml Packed Cells 400 ml Blood Product IV Normal Saline Flush 260 ml Output Urine Total 450 ml 1080 ml 600 ml # Bowel Movements 0 Result Diagram: 03/16/18 0910 03/16/18 0910 Imaging Last [address] 03/15/18 0000 Signed Impressions: CONCLUSION: 1. No acute intracranial hemorrhage. 2. 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 3. Bilateral cortical atrophy. Procedures Laminectomy L23, L34, L45, L5S1, Posterior lumbar fusion L2-S1. Objective Remarks Sitting up in bed NAD Eating lunch L/S Dressings intact, drain in place, no erythema, mild spasm +motor at/ehl/GS bilaterally with R EHL 4/5, +sens, +nvi Neg homans bilaterally When speaking to the patient, no eye drooping observed. Annunciates well without slurring. Assessment & Plan Ortho Post Op Day #: 3 Problem List: (1) Spinal stenosis of lumbar region ICD Codes: M48.061 - Spinal stenosis, lumbar region without neurogenic claudication Qualifiers: Qualified Codes: M48.062 - Spinal stenosis, lumbar region with neurogenic claudication (2) Spondylolisthesis ICD Codes: M43.10 - Spondylolisthesis, site unspecified Qualifiers: Qualified Codes: M43.16 - Spondylolisthesis, lumbar region Assessment and Plan pod#2 s/p Lami/Fusion L2-S1 He continues to do well. He denies any symptoms of eye drooping or slurred speech since his episode 2 days ago. Neuro consult performed last night - poss TIA. Ordered carotid ultrasound, echo and lipid panel. If studies negative and neuro stable, ok to d/c home w c today. Ok to start ASA 81mg beginning pod#7 as requested by neuro. PO pain meds as needed. Dry dressing change today. If dry, do not change. If draining, daily change for next 5-7 days. PT - Out of bed with brace for 10-12 weeks. WBAT. Walker as needed. DME written. Pura Oliver Mar 17, 2018 07:57
[2018-03-17 08:00] VITALS: BP 146/63; PULSE 88; RESP 18; TEMP 98.2; O2SAT 99
--- NOTE | 2018-03-17 09:25 | HHI.PR ---
Subjective Remarks Patient had no further facial droop or difficulty with speech. No headaches. No visual changes. No difficulty with swallowing. Objective Vitals Vital Signs Date Time Temp Pulse Resp B/P (MAP) Pulse Ox O2 Delivery O2 Flow Rate FiO2 03/17/18 08:00 98.2 88 18 146/63 (90) 99 03/17/18 06:00 19 03/17/18 04:50 98.3 77 17 150/66 (94) 99 03/17/18 00:55 98.7 95 17 127/58 (81) 97 03/16/18 22:00 18 03/16/18 21:17 98 21 03/16/18 20:55 99.4 93 16 109/56 (73) 96 03/16/18 20:00 96 Room Air 03/16/18 16:00 98.3 83 18 123/60 (81) 98 03/16/18 15:36 Room Air 03/16/18 14:36 97 21 03/16/18 14:00 12 03/16/18 12:00 98.5 84 18 110/53 (72) 98 I/O 03/16/18 03/16/18 03/16/18 03/17/18 03/17/18 03/17/18 07:00 15:00 23:00 07:00 15:00 23:00 Intake Total 1080 ml 720 ml 480 ml Output Total 450 ml 1080 ml 600 ml Balance 630 ml -360 ml -120 ml Intake Oral 420 ml 720 ml 480 ml Packed Cells 400 ml Blood Product IV Normal Saline Flush 260 ml Output Urine Total 450 ml 1080 ml 600 ml # Bowel Movements 0 Result Diagram: 03/16/18 0910 03/16/18 0910 Objective Remarks GENERAL: This is a well-nourished, well-developed patient, in no apparent distress. CARDIOVASCULAR: Regular rate and rhythm without murmurs, gallops, or rubs. RESPIRATORY: Clear to auscultation. Breath sounds equal bilaterally. No wheezes , rales, or rhonchi. GASTROINTESTINAL: Abdomen soft, non-tender, nondistended. Normal active bowel sounds MUSCULOSKELETAL: Extremities without clubbing, cyanosis, or edema. NEURO: Alert & Oriented x4 to person, place, time, situation. cranial nerves II through XII intact, nonfocal. A/P Assessment and Plan 1. Lumbar stenosis status post operative day #3 Bilateral laminectomy L2-3, L3-4, L4-5, L5-S1. Reduction of spondylolisthesis, L5-S1. Posterior lateral interbody fusion L4-5 and L5-S1. Placement of interbody cage from the left L4-5 and L5-S1. Posterior spinal fusion, lateral transverse process technique L3-4, L4-5, L5- S1. Posterior spinal segmental instrumentation L3-S1 with Major bone grafting of the lumbar spine Continue postoperative care, pain control, physical therapy per orthopedic surgery. 2. Post operative neurological changes with possible TIA -patient had left facial droop and difficulty with speech 2 nights ago. Neurology service is currently following and recommended further workup with 2D echo; carotid ultrasound ; start aspirin when okay with orthopedic surgery due to recent laminectomy. Patient has been neurologically stable overnight. 3. Hypothyroidism - continue with levothyroxine 4. Hypertension, chronic essential Continue home GREER inhibitor, IV Vasotec as needed for uncontrolled blood pressure. Further recommendations based on blood pressure trends 5. BPH -continue with Flomax and finasteride 5. DVT prophylaxis - bilateral SCDs Discharge Planning home with [facility] when OK with Ortho and Neurology Jaz Briones MD Mar 17, 2018 09:25
[2018-03-17] MEDS: DOCUSATE SODIUM 100 MG CAP PO SCH ×2 (09:44→20:54)
[2018-03-17] MEDS: LISINOPRIL 20 MG TAB PO SCH (09:45)
[2018-03-17] MEDS: FINASTERIDE 5 MG TAB PO SCH (09:45)
--- NOTE | 2018-03-17 09:46 | RADRPT ---
EXAM DATE: 03/17/2018 9:33 AM EDT AGE/SEX: 78 years / Male INDICATIONS: Transient ischemic attack. CLINICAL DATA: This is the patient's initial encounter. Patient reports that signs and symptoms have been present for 1 day and indicates a pain score of 0/10. MEDICAL/SURGICAL HISTORY: Hypothyroidism. Hypercholesterolemia. Arthritis. Heart murmur. HTN . BPH. . Bilateral endarterectomy. Gastrectomy x2. Liver repair. Femur fracture with lonnie. Left foot crushed repair. Right knee surgery. COMPARISON: No prior [place] exams available for comparison. [facility], [place] CAROTID AR TERIES 2014-12-23 VELOCITY PARAMETERS: ICA/CCA Ratio: Right 0.84 , Left 0.84 ICA: Right 150 cm/sec, Left 137 cm/sec CCA: Right 177 cm/sec, Left 163 cm/sec ECA: Right 151 cm/sec, Left 171 cm/sec Vertebral: Right 129 cm/sec antegrade, Left 109 cm/sec antegrade FINDINGS: Right Carotid: No significant stenosis is visualized. The carotid bulb is somewhat large suggesting previous endarterectomy. The waveforms are within normal limits. Left Carotid: No significant stenosis is visualized. The carotid bulb is somewhat large suggesting p revious endarterectomy. The waveforms are within normal limits. Other: None. CONCLUSION: 1. Right Internal Carotid Artery: No hemodynamically significant carotid artery stenosis identified. 2. Left Internal Carotid Artery: No hemodynamically significant carotid artery stenosis identified. Electronically signed by: Marlon Garrison MD 03/17/2018 9:45 AM EDT
[2018-03-17 12:00] VITALS: BP 146/70; PULSE 88; RESP 17; TEMP 98.4; O2SAT 100
[2018-03-17 16:00] VITALS: BP 170/76; PULSE 90; RESP 17; TEMP 99; O2SAT 100
--- NOTE | 2018-03-17 17:51 | HHI.PR ---
Review/Management Diagnosis TIA---stable Plan start asa 81 mg daily if ok with Dr Yeboah ok to discharge from neurology standpoint if echocardiogram reveals no sign of thrombus. Diagnosis/Plan: Subjective Subjective Comments No acute events reported Active Medications Current Medications Medications (Trade) Dose Ordered Sig/Judith Route Start Time Stop Time Status Last Admin (Prinivil) 20 mg DAILY PO 03/15/18 09:00 03/17/18 09:45 (Proscar) 5 mg DAILY PO 03/15/18 09:00 03/17/18 09:45 (Synthroid) 75 mcg DAILY@0600 PO 03/15/18 06:00 03/17/18 06:41 (Flomax) 0.8 mg HS PO 03/14/18 21:00 03/16/18 19:42 (Pravachol) 80 mg HS PO 03/14/18 21:00 03/16/18 19:42 Lactated Ringer's 1,000 ml @ 80 mls/hr [id number] IV 03/14/18 16:58 03/14/18 22:06 ([place] 7.5-325 Mg) 1 tab Q4H PRN PO 03/14/18 17:00 03/16/18 06:47 ([place] 7.5-325 Mg) 2 tab Q6H PRN PO 03/14/18 17:00 03/16/18 23:30 (Zofran Odt) 4 mg Q6H PRN PO 03/14/18 17:00 (Colace) 100 mg BID PO 03/15/18 21:00 03/17/18 09:44 (Mag-Al Plus Susp Liq) 30 ml Q6H PRN PO 03/14/18 17:00 (Ambien) 5 mg HS PRN PO 03/14/18 21:00 03/16/18 23:30 (Dulcolax Supp) 10 mg DAILY PRN RECTAL 03/14/18 17:00 (Fleets Enema (Adult)) 133 ml DAILY PRN NM 03/14/18 17:00 (Narcan Inj) 0.4 mg UNSCH PRN IV PUSH 03/14/18 17:00 PLASTIC TECHNICIAN Dosage Infused (Pha) 1 Q8HR .XX 03/14/18 22:00 03/17/18 06:00 (Morphine Inj) 5 mg Q4H PRN IV PUSH 03/14/18 17:00 (Vasotec Inj) 1.25 mg Q6H PRN IV PUSH 03/15/18 12:00 (Senokot) 17.2 mg Q12H PRN PO 03/16/18 11:30 (Lactulose Liq) 30 ml DAILY PRN PO 03/16/18 11:30 03/17/18 06:41 Allergies Allergies Coded Allergies No Known Allergies (Unverified03/14/18) Exam I&O / VS 03/17/18 03/17/18 03/18/18 15:00 23:00 07:00 # Voids 4 Vital Signs Date Time Temp Pulse Resp B/P (MAP) Pulse Ox O2 Delivery O2 Flow Rate FiO2 03/17/18 16:00 99.0 90 17 170/76 (107) 100 03/17/18 12:00 98.4 88 17 146/70 (95) 100 03/17/18 11:15 21 03/17/18 08:00 98.2 88 18 146/63 (90) 99 03/17/18 06:00 19 03/17/18 04:50 98.3 77 17 150/66 (94) 99 03/17/18 00:55 98.7 95 17 127/58 (81) 97 03/16/18 22:00 18 03/16/18 21:17 98 21 03/16/18 20:55 99.4 93 16 109/56 (73) 96 03/16/18 20:00 96 Room Air Exam Comments alert, oriented times three speech normal CN intact motor 5/5 BUE Objective Radiology Results carotid US--no significant stenosis Diagnostic Tests ECHO--pending Matt Harrell MD PhD Mar 17, 2018 17:50
[2018-03-17 20:00] VITALS: BP 164/78; PULSE 92; RESP 17; TEMP 98.9; O2SAT 97
[2018-03-17] MEDS: PRAVASTATIN SOD 80 MG TAB PO SCH (20:54)
[2018-03-17] MEDS: TAMSULOSIN HCL 0.4 MG CAP PO SCH (20:55)
--- NOTE | 2018-03-17 20:57 | ECHRPT ---
Indication: TIA CONCLUSIONS Normal left ventricular size. Wall thickness is normal. The left ventricular systolic function is normal with an estimated ejection fraction in the range of 55-60%. Aortic valve sclerosis is present. Trace aortic valve regurgitation. There is trace tricuspid valve regurgitation. The estimated pulmonary arterial pressure is 43 mmHg. Mild pulmonary valve regurgitation. BP: / HR: Rhythm: MEASUREMENTS (Male / Female) Normal Values Technical Quality: 2D ECHO LV Diastolic Diameter PLAX 4.3 cm 4.2 - 5.9 / 3.9 - 5.3 cm LV Systolic Diameter PLAX 3.1 cm IVS Diastolic Thickness 1.1 cm 0.6 - 1.0 / 0.6 - 0.9 cm LVPW Diastolic Thickness 0.7 cm 0.6 - 1.0 / 0.6 - 0.9 cm LV Relative Wall Thickness 0.4 LA Systolic Diameter LX 4.1 cm 3.0 - 4.0 / 2.7 - 3.8 cm M-MODE Aortic Root Diameter MM 3.2 cm AV Cusp Separation MM 1.8 cm DOPPLER LVOT Peak Velocity 127.3 cm/s LVOT Peak Gradient 6.5 mmHg MR Peak Velocity 608.0 cm/s MR Peak Gradient 147.9 mmHg TR Peak Velocity 306.0 cm/s TR Peak Gradient 37.5 mmHg Right Atrial Pressure 5.0 mmHg Pulmonary Artery Systolic Pressu 42.5 mmHg Right Ventricular Systolic Press 42.5 mmHg FINDINGS LEFT VENTRICLE Normal left ventricular size. Wall thickness is normal. The left ventricular systolic function is normal with an estimated ejection fraction in the range of 55-60%. RIGHT VENTRICLE Normal right ventricular size and systolic function. LEFT ATRIUM The left atrial size is normal. RIGHT ATRIUM The right atrial size is normal. ATRIAL SEPTUM Normal atrial septal thickness without atrial level shunting by limited color doppler interrogation. AORTA The aortic root and proximal ascending aorta are normal in size on limited imaging. MITRAL VALVE Structurally normal mitral valve. No mitral valve stenosis or regurgitation. AORTIC VALVE Aortic valve sclerosis is present. Trace aortic valve regurgitation. TRICUSPID VALVE There is trace tricuspid valve regurgitation. The estimated pulmonary arterial pressure is 43 mmHg. PULMONARY VALVE Mild pulmonary valve regurgitation. VESSELS The inferior vena cava is normal in size. PERICARDIUM No pericardial effusion. Zachary Alaniz MD, FACC (Electronically Signed) Final Date:17 March 2018 20:56
[2018-03-18] MEDS ORDERED: ASPIRIN EC 81 MG TABEC PO SCH (09:00)
== END 2018-03-17 21:17 | disposition home health service (06) | DRG 454 ==
LOC: HSDI 06:57 → N06B 18:22
PROVIDERS: ADMIT Orthopaedic Surgery Orthopaedic Surgery of the Spine; ATTEND Orthopaedic Surgery Orthopaedic Surgery of the Spine
PROC: 0SG3071 Fusion of Lumbosacral Joint with Autologous Tissue Substitute, Posterior Approach, Posterior Column, Open Approach (ICD-10-PCS; 2018-03-14)
PROC: 01NB0ZZ Release Lumbar Nerve, Open Approach (ICD-10-PCS; 2018-03-14)
PROC: 0ST20ZZ Resection of Lumbar Vertebral Disc, Open Approach (ICD-10-PCS; 2018-03-14)
PROC: 0QB00ZZ Excision of Lumbar Vertebra, Open Approach (ICD-10-PCS; 2018-03-14)
PROC: 0QU007Z Supplement Lumbar Vertebra with Autologous Tissue Substitute, Open Approach (ICD-10-PCS; 2018-03-14)
PROC: 0SG30AJ Fusion of Lumbosacral Joint with Interbody Fusion Device, Posterior Approach, Anterior Column, Open Approach (ICD-10-PCS; principal; 2018-03-14 09:17)
PROC: 30233N1 Transfusion of Nonautologous Red Blood Cells into Peripheral Vein, Percutaneous Approach (ICD-10-PCS; 2018-03-16)
DX: M54.17 Radiculopathy, lumbosacral region (principal); G45.9 Transient cerebral ischemic attack, unspecified; D64.9 Anemia, unspecified; M48.062 Spinal stenosis, lumbar region with neurogenic claudication; I10 Essential (primary) hypertension; M43.17 Spondylolisthesis, lumbosacral region; K59.00 Constipation, unspecified; S00.81XA Abrasion of other part of head, initial encounter; X58.XXXA Exposure to other specified factors, initial encounter; Y92.234 Operating room of hospital as the place of occurrence of the external cause; E78.5 Hyperlipidemia, unspecified; E03.9 Hypothyroidism, unspecified; N40.0 Benign prostatic hyperplasia without lower urinary tract symptoms; M19.90 Unspecified osteoarthritis, unspecified site; Z79.899 Other long term (current) drug therapy
CPT/HCPCS: 36430; 70450; 72100; 76000; 80048; 80053; 80061; 82550; 82552; 82805; 82948; 84484; 85014; 85018; 85025; 85384; 85610; 85730; 86850; 86900; 86901; 86920; 93005; 93306; 93880; 94150; C1713; J0131; J0171; J0690; J1100; J1170; J1580; J1644; J1940; J2250; J2270; J2370; J2405; J3010; J3370; J7030; J7040; J7050; J7120; P9016